=== PATIENT | female | born 1975 | race Caucasian/White ===

== ENCOUNTER 2016-07-05 12:24 | Emergency (ER) ==
[2016-07-05 13:11] LABS: MANUAL DIFF NEEDED? NO
[2016-07-05 13:15] LABS: BASO% 0.4 % (0.0-0.8); EOS# 0.04 X1000 (0.0-0.7); EOS% 0.9 % (0.0-10.0); HEMATOCRIT 38.4 % (37.0-47.0); HEMOGLOBIN 13.3 g/dL (12.0-16.0); LYMPH# 1.47 X1000 (1.2-3.4); MCH 31.6 PG (27-31); MCHC 34.6 g/dL (33-37); MCV 91.2 FL (81-99); MONO# 0.29 X1000 (0.11-0.59); MONO% 6.3 % (1.7-9.3); MPV 11.3 FL (7.4-10.4); NEUT% 60.4 % (42.2-75.2); PLT 270 X1000 (130-400); RBC 4.21 XMIL (4.2-5.4)
[2016-07-05 13:43] LABS: AGAP 9; ALBUMIN 3.7 g/dL (3.5-5.0); ALKALINE PHOSPHATASE 75 U/L (32-104); BUN 11 mg/dL (8-22); CALCIUM 9.3 mg/dL (8.8-10.2); CHLORIDE 96 mmol/L (98-107); COSMO 295; GOT 9 U/L (10-30); GPT 13 U/L (10-36); POTASSIUM 4.4 mmol/L (3.5-5.1); SODIUM 134 mmol/L (136-145); TCO2 29 mmol/L (25-35); TOTAL BILIRUBIN 0.34 mg/dL (0.20-1.00); TOTAL PROTEIN 6.8 g/dL (6.3-8.3)
[2016-07-05] MEDS ORDERED: HUMULIN R IV ONE (14:00)
[2016-07-05] MEDS ORDERED: NS 1,000 ML IV ONE ×2 (14:00→15:01)
--- NOTE | 2016-07-05 14:28 | PROVIDER DOCUMENTATION ---
HPI-General Adult - General Chief Complaint: High Blood Sugar Stated Complaint: REQ RX REFILL Time Seen by Provider: 07/05/16 13:59 Source: patient Allergies/Adverse Reactions: Patient Allergies Allergy/AdvReac Type Severity Reaction Status Date / Time No Known Allergies Allergy Verified 07/05/16 14:07 Home Medications: Home Medication List Medication Instructions Recorded Confirmed Last Taken Type Carvedilol [Coreg] 12.5 mg PO Q12HR #60 tablet 02/04/16 07/05/16 07/05/16 08:30 Rx Insulin Humulin 70/30 [Humulin 30 unit SUBQ QHS #2 insuln.pen 02/04/16 07/05/16 07/02/16 Rx 70/30] Insulin Humulin 70/30 [Humulin 40 unit SUBQ QAM #2 insuln.pen 02/04/16 07/05/16 07/03/16 08:30 Rx 70/30] Promethazine [Phenergan] 25 mg PO Q6H PRN PRN #20 tablet 02/24/16 07/05/16 Unknown Rx Insulin NPH Hum/Reg Insulin Hm 30 unit SQ BID #1 insuln.pen 07/05/16 Unknown Rx [Humulin 70/30 Kwikpen] - History of Present Illness -Gen Adult Nature of Presenting Problems: 41 y/o WF presents to ED with needing refill of insulin x 2 days. Pt states has been IDDM for about 2 years, DM2 for 13 years. Reports ran out of her 70/ 30 mix and hasn't had a chance to get back to her PCP for refill. Denies any abd. pain, N/V/D/C. Review of Systems - Adult - REVIEW OF SYSTEMS - ADULT Constitutional: reports: no symptoms reported. denies: chills, fever Eyes: reports: no symptoms reported. denies: blurred vision, double vision Ears, Nose, Mouth & Throat: reports: no symptoms reported. denies: ear pain, nose pain Cardiovascular: reports: no symptoms reported. denies: chest pain, palpitations Respiratory: reports: no symptoms reported. denies: dyspnea on exertion, shortness of breath Gastrointestinal: reports: no symptoms reported. denies: abdominal pain, nausea , vomiting Genitourinary: reports: no symptoms reported. denies: dysuria, frequency Musculoskeletal: reports: no symptoms reported. denies: joint pain, joint swelling Integumentary: reports: no symptoms reported. denies: nail changes, rash Neurological: reports: no symptoms reported. denies: numbness, paresthesia Psychiatric: reports: no symptoms reported Endocrine: reports: no symptoms reported. denies: cold intolerance, heat intolerance Hematologic/Lymphatic: reports: no symptoms reported. denies: easy bruising, prolonged bleeding Allergic/Immunologic: reports: no symptoms reported All Other Systems: Reviewed and Negative Past History - Adult - PAST MEDICAL HISTORY-ADULT Review of Records: reports: Nursing Assessment Review, Medications Reviewed Major Childhood Illnesses: reports: denies history Cardiovascular: reports: denies history Respiratory: reports: denies history Gastrointestinal: reports: GERD Obstetrical/Gynecological: reports: denies history Genitourinary: reports: kidney stones Musculoskeletal: reports: chronic pain Neurological: reports: denies history Psychiatric: reports: anxiety, depression Endocrine/Immune: reports: Diabetes, thyroid disorder Other Conditions: reports: denies history - PRIOR SURGERIES/PROCEDURES Surgical/Procedure History: reports: BTL, - PRIOR HOSPITALIZATIONS Prior Hospitalizations: reports: for other non-related - IMMUNIZATION STATUS Childhood Immunizations: See Nurse Assessment Flu Vaccine: See Nurse Assessment - FAMILY HISTORY Family History: reviewed, not pertinent - SOCIAL HISTORY Smoking: cigarettes, less than 1 pack/day Provider spent 3-5 mins advising pt. on dangers of tobacco.: Discussed manners to quit use, and f/u contacts for add'l counseling. Physical Exam-General - PHYSICAL EXAM-ADULT Initial Vital Signs Reviewed: Yes - CONSTITUTIONAL General Appearance: alert, no apparent distress - EYES Eyes: pink conjunctivae - HEAD, EARS, NOSE, MOUTH & THROAT HENMT: normocephalic/atraumatic, moist mucous membranes - NECK Neck: supple, normal inspection - RESPIRATORY Respiratory: lungs clear, normal breath sounds. negative: crackles, rales, rhonchi, stridor, wheezing - CARDIOVASCULAR Cardiovascular: regular rate, rhythm. negative: bradycardia, tachycardia - GASTROINTESTINAL (ABDOMEN) Abdominal Exam: normal bowel sounds, non tender, soft. negative: distended, guarding, rigid - MUSCULOSKELETAL Back Exam: no CVA tenderness Extremity: normal gait - SKIN Integumentary: normal color, normal turgor, warm/dry - NEUROLOGIC Neurologic: negative: aphasia - PSYCHIATRIC Psych/Mental Status: normal mood/affect, normal thought content, normal thought process, oriented x 3 Departure - Departure Time of Disposition Order: 15:01 DIAGNOSIS: Hyperglycemia, Medication refill Uncontrolled diabetes mellitus Qualifiers: Diabetes mellitus type: other specified (including APRIL) Diabetes mellitus complication status: without complication Diabetes mellitus exterminator termite insulin use: unspecified snf insulin use status Qualified Code(s): E13.65 - Other specified diabetes mellitus with hyperglycemia DIAGNOSIS: (Ruled Out): DKA (diabetic ketoacidoses) Disposition: HOME 01 Certified Medical Emergency: Emergent Condition: Stable Additional Instructions: Take medications as directed. Follow up with PCP for further management. ED Follow Up Instructions: You have been treated by a care provider in the Emergency Department. These instructions are being provided to you so you can have an understanding of how to care for yourself upon discharge. Upon discharge from the Emergency Department, you are responsible for making arrangements for follow-up care by a physician of your choice. Take all prescribed medications as directed. Return to the Emergency Department immediately for any new or worsening symptoms. You may call the Physician Referral phone number at [phone] to obtain a list of Physicians who are taking new patients. Prescriptions: Insulin NPH Hum/Reg Insulin Hm [Humulin 70/30 Kwikpen] 30 unit SQ BID #1 insuln.pen Referrals: None,PCP [Primary Care Provider] - Attestation - Physician/ BASSEM Attestation Patient care was provided by Advanced Practice Provider:: Yes Advanced Practice Provider:: Jaelyn Ellis Advanced Practice Provider documentation review:: The Mid-level provider documentation, treatment plan and medical decision making was reviewed by the physician who agrees with all treatment and medical decision making by the MLP.
[2016-07-05] MEDS ORDERED: HUMULIN R ONE (15:32)
[2016-07-05 15:33] VITALS: BP 137/89
== END 2016-07-05 17:21 | disposition home or self-care (01) ==
LOC: ED 12:24
DX: E11.65 Type 2 diabetes mellitus with hyperglycemia (principal); Z76.0 Encounter for issue of repeat prescription; K21.9 Gastro-esophageal reflux disease without esophagitis; G89.29 Other chronic pain; E07.9 Disorder of thyroid, unspecified; Z87.442 Personal history of urinary calculi; F17.210 Nicotine dependence, cigarettes, uncomplicated; Z71.6 Tobacco abuse counseling; Z79.899 Other long term (current) drug therapy; Z79.4 Long term (current) use of insulin
CPT/HCPCS: 80053; 82009; 82948; 85025; J7030